=== PATIENT | male | born 1970 | race Caucasian/White ===

== ENCOUNTER → 2020-10-07 | Outpatient (CLI) | payer BC, OTHER | LOC: SJCVCIMAG 14:18 | PROVIDERS: ATTEND Internal Medicine Cardiovascular Disease | DX: R93.1 Abnormal findings on diagnostic imaging of heart and coronary circulation (principal); R07.89 Other chest pain; R06.00 Dyspnea, unspecified; E78.5 Hyperlipidemia, unspecified; I25.10 Atherosclerotic heart disease of native coronary artery without angina pectoris; Z87.891 Personal history of nicotine dependence ==